=== PATIENT | male | born 1980 ===

== ENCOUNTER 2016-08-03 12:17 | Day surgery (SDC) | payer OTHER ==
[2016-06-26 09:40] VITALS: BMI 31.4
[2016-08-03] MEDS ORDERED: Lactated Ringer's 1,000 ML IV ONE (13:10)
[2016-08-03] MEDS ORDERED: Iohexol 240 (50 ml) ONE (13:11)
[2016-08-03] MEDS ORDERED: cefTRIAXone IV 1 gm in Dextros 50 ML IVPB ONE (13:11)
[2016-08-03] MEDS ORDERED: Midazolam 2 MG/2 ML VIAL ONE (13:12)
[2016-08-03] MEDS ORDERED: Propofol 10 mg/ml Inj (20 ML) ONE (13:12)
[2016-08-03] MEDS ORDERED: HYDROmorphone 0.5 mg/0.5 ml ISec IVP PRN (13:23)
[2016-08-03 14:04] VITALS: O2SAT 100
[2016-08-03] MEDS ORDERED: Acetaminophen-Codeine 300/30 mg Tab PO PRN (14:53)
[2016-08-03] MEDS ORDERED: Lactated Ringer's 500 ML IV ONE (15:20)
[2016-08-03 16:01] VITALS: BP 119/64; PULSE 88; RESP 19; TEMP 97.2
--- NOTE | 2016-08-04 15:00 | RAD ---
PROCEDURE: Bilateral retrograde urography HISTORY: BILATERAL HYDRONEPHROSIS COMPARISON: Not available TECHNIQUE: Retrograde urography was performed by Dr. Vladimir Gray a moderate needs teacher radiograph and 2 additional films from selective retrograde urography are submitted. FINDINGS: The moderate needs teacher radiograph is unremarkable. No masses or abnormal calcifications identified. An image of the right retrograde study demonstrates filling of the ureter to the level of the proximal ureter but no filling of the collecting system. No filling defect is identified. A 2nd image supplied during left retrograde urography demonstrates filling of only the distal half of the left ureter. Again, no filling defect is seen. This image demonstrates filling of the right ureter and pelvicaliceal system. However, the upper pole is not included on the film. Again, no filling defect is demonstrated. IMPRESSION: Examination limited as described above. Partial filling of left ureter. No filling defect demonstrated bilaterally.
--- NOTE | 2016-09-10 16:59 | HP ---
REASON FOR ADMISSION: Workup for retention, hematuria and renal failure. A very pleasant gentleman who comes to the office with his mother who is also is supervising his care . It is not clear to me exactly what limit of understanding is. He has some psychiatric issues as w tino, and he takes some medication for this, I believe this is also related to the problem, but he comes in in urinary retention. He had more than a liter in his bladder every time we have checked him. Today is the first day we are actually bringing him to the hospital. We have been trying for quite some time since I have known him to evaluate further. He has significantly abnormal blood test ing and I very worried about future dialysis and I have explained this at great length. Finally, aft er much discussion and planning, the patient is here today for further workup. I do want to say that the mother is attentive to his care completely, and he has also needed to get medical clearance and cardiology clearance. Although he is fairly young, he has multiple medical issues and cardiology issues as well. But either way, he is in retention. We have at least if nothing else wanted to insert a De Anda cathet er, but for various reasons were unable to. He is here now for further diagnostic studies and then f maritza plans to follow, maybe for a cystoscopy and stent. PAST MEDICAL AND SURGICAL HISTORY: As otherwise listed above. 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 REVIEW OF SYSTEMS: Listed above. SOCIAL HISTORY: He comes to the office with his mother. No history of alcohol abuse. PHYSICAL EXAMINATION: GENERAL: Well-nourished male in no apparent distress. VITAL SIGNS: Within normal limits. LUNGS: Clear. ABDOMEN: Overall soft, nontender. No flank mass appreciated. GENITOURINARY: Normal male phallus without discharge. No testicular masses appreciated. RECTAL: Deferred to cystoscopy. I mention now though a 10-20 gram prostate relatively soft and norm al. LABORATORIES: See chart. No abnormalities noted. DIAGNOSES: Urinary retention, renal failure, azotemia, hematuria, abnormal voiding dysfunction and u rinary retention. PLAN: As follows: 1. We are going to begin antibiotic prophylaxis. 2. Cystoscopy, retrograde pyelogram, possible stent insertion and then further evaluation will jesus hernandez. Again, we were not able to get stents in; see the operative report as a separate note. We also did a cystogram and we left the patient with a De Anda catheter. Brandon Gray MD cc: [id number] TT: 09/10/2016 16:59:05 violeta
--- NOTE | 2016-09-10 22:30 | OP ---
PROCEDURE DATE: 09/10/2016 PREOPERATIVE DIAGNOSES: Urinary retention, voiding dysfunction, hematuria. POSTOPERATIVE DIAGNOSES: Urinary retention, voiding dysfunction, hematuria. PROCEDURE: Cystoscopy, bilateral retrograde pyelograms, and insertion of De Anda catheter and a cystog karley. BLOOD LOSS: Less than 20 mL. COMPLICATIONS: There were no complications. FINDINGS: There is normal anterior urethra, no strictures (we are ruling out a stricture, but there is no stricture from the verum minimally visually occlusive about 2-3 cm). There were no complications. We did not insert a double-J stent. INDICATIONS: See the history and physical for further details. Very pleasant gentleman, somewhat no ncompliant. He comes to the office. He has some limited understanding. He comes to the office with his mother who seems to understand well. They come in with urinary retention and I have explained in great detail my concerns for future renal failure and dialysis specifically. PROCEDURE ITSELF: After obtaining informed consent, the patient placed on the table, routine monitor s placed, timeouts were called to confirm the patient, positioning, etc. With anesthesia, we introduced the cystoscope via the urethra. There were no strictures. What we di d note is the presence of no strictures, veru and is minimally occlusive. What we did note is the presence of a tremendous amount of urine. We drained more than a liter, a li ter and a half. Retrogrades are attempted at this point. At this point, we inserted a De Anda catheter via the urethra. I performed a cystogram. Films submitted to the radiologist, but basically, it is a completely abnormal within the [facility] er. There are no tumors or masses noted. The patient tolerated without complication. Brandon Gray MD cc: [id number] TT: 09/10/2016 22:30:14 or
== END 2016-08-03 16:00 | disposition home or self-care (01) ==
LOC: C.SDS 12:17
PROVIDERS: ATTEND Urology
DX: R33.9 Retention of urine, unspecified (principal); R31.9 Hematuria, unspecified
CPT/HCPCS: 52005; 74420; 82948; J0696; J7120

== ENCOUNTER 2018-03-11 14:12 | Emergency (ER) | payer OTHER ==
[2018-03-11 14:12] VITALS: BMI 31.4
[2018-03-11 14:35] VITALS: BP 124/81; PULSE 115; RESP 18; TEMP 98.5; O2SAT 99
--- NOTE | 2018-03-11 14:48 | C.PDOC ---
History Of Present Illness 37-year-old male, presents to the emergency department with complaints of abscesses to right abdomen and left calf. Pt was seen in clinic, where the abscess to abdomen was drained. Pts blood sugar found to be in 500's. He was given insulin and sent to ED for further evaluation. No fever, Time Seen by Provider: 03/11/18 14:35 Chief Complaint (Nursing): Abnormal Skin Integrity History Per: Patient History/Exam Limitations: no limitations Current Symptoms Are (Timing): Still Present Past Medical History Reviewed: Historical Data, Nursing Documentation, Vital Signs Vital Signs: Last Vital Signs Temp 98.5 F 03/11/18 14:29 Pulse 115 H 03/11/18 14:29 Resp 18 03/11/18 14:29 BP 124/81 03/11/18 14:29 Pulse Ox 99 03/11/18 14:29 - Medical History PMH: Hypercholesterolemia Surgical History: Tonsillectomy Family History: States: No Known Family Hx - Social History Hx Alcohol Use: No Hx Substance Use: No Review Of Systems Constitutional: Negative for: Fever, Chills Gastrointestinal: Negative for: Nausea, Vomiting Skin: Positive for: Other (abscesses to leg and right abdomen) Neurological: Negative for: Weakness, Numbness Physical Exam - Physical Exam Appears: Non-toxic, No Acute Distress Skin: Warm, Dry, Other (Right abdomen: 4x4cm area of erythema, drained abscess. No streaking. Left calf: 3x3cm no fluctuance, mild erythema +tenderness +swelling. No streaking.) Head: Atraumatic, Normacephalic Eye(s): bilateral: Normal Inspection Nose: Normal Oral Mucosa: Moist Lips: Normal Appearing Neck: Normal ROM Cardiovascular: Rhythm Regular, No Murmur Respiratory: Normal Breath Sounds, No Accessory Muscle Use Gastrointestinal/Abdominal: Soft, No Tenderness Extremity: Normal ROM, No Calf Tenderness, No Deformity Neurological/Psych: Oriented x3, Normal Speech ED Course And Treatment O2 Sat by Pulse Oximetry: 99 Pulse Ox Interpretation: Normal (RA) Disposition - Disposition Referrals: [facility] [Outside] Disposition: HOME/ ROUTINE Disposition Time: 15:30 Condition: STABLE Additional Instructions: Follow up with the medical doctor within 1-2 days. return if worsened. Prescriptions: Cephalexin [Keflex] 500 mg PO BID #19 capsule Sulfamethoxazole/Trimethoprim [Bactrim DS 800 mg-160 mg] 1 tab PO BID #19 tab Instructions: Skin Abscess Forms: [facility] (Indonesian) - Clinical Impression Clinical Impression: Abscess, Cellulitis, Hyperglycemia - Scribe Statement The provider has reviewed the documentation as recorded by the Scribe (Karthik Nevarez) All medical record entries made by the Scribe were at my direction and personally dictated by me. I have reviewed the chart and agree that the record accurately reflects my personal performance of the history, physical exam, medical decision making, and the department course for this patient. I have also personally directed, reviewed, and agree with the discharge instructions and disposition.
[2018-03-11] MEDS ORDERED: Tmp-Smz 800 mg-160 mg DS Tab PO STA (15:12)
[2018-03-11] MEDS ORDERED: Tmp-Smz 800 mg-160 mg DS Tab ONE (15:41)
== END 2018-03-11 15:54 | disposition home or self-care (01) ==
LOC: C.ER 14:12
DX: L02.211 Cutaneous abscess of abdominal wall (principal); L02.416 Cutaneous abscess of left lower limb; L03.311 Cellulitis of abdominal wall; L03.116 Cellulitis of left lower limb; R73.9 Hyperglycemia, unspecified